=== PATIENT | male | born 2000 | race Caucasian/White ===

== ENCOUNTER 2023-06-21 13:00 | Emergency (ER) | payer MEDICAID ==
[~2023-06-21] VITALS: Ht 177.8 cm; Wt 113.4 kg
[2023-06-21 13:17] VITALS: BP 160/91; PULSE 101; RESP 20; TEMP 98.3; O2SAT 97
[2023-06-21] MEDS ORDERED: CETI10SG1 PO (14:22)
[2023-06-21] MEDS ORDERED: ROB PO (14:22)
== END 2023-06-21 14:27 | disposition home or self-care (01) ==
LOC: MED 13:00
DX: J06.9 Acute upper respiratory infection, unspecified (principal); Z79.899 Other long term (current) drug therapy
CPT/HCPCS: 71045; 99283